=== PATIENT | male | born 1950 | race African-American/Black ===

== ENCOUNTER 2021-03-25 12:47 | Inpatient (IN) | payer OTHER ==
[~2021-03-25] VITALS: Ht 188 cm; Wt 110.4 kg
[2021-03-25 12:52] VITALS: BP 174/94
[2021-03-25 13:12] LABS: ABSOLUTE NEUTROPHILS 2.5 thou/uL (1.4-8.2); BASOPHILS 1.2 % (0.0-2.0); EOSINOPHILS 0.8 % (0.0-3.0); HEMATOCRIT 43.2 % (42.0-52.0); HEMOGLOBIN 14.9 gm/dL (14.0-18.0); LYMPHOCYTES 41.1 % (24.0-44.0); MCH 29.5 pg (26.0-34.0); MCHC 34.4 g/dL (28.0-37.0); MCV 85.8 fL (80.0-100.0); MONOCYTES 7.9 % (1.0-8.0); PLATELET COUNT 211 thou/uL (150-400); RBC 5.04 mil/uL (4.50-6.00); RDW 14.1 % (10.5-14.5); WBC 5.2 thou/uL (4.0-11.0)
[2021-03-25 13:15] LABS: ANION GAP 7 mmol/L (7-16); BUN 17 mg/dL (7-18); CALCIUM 9.1 mg/dL (8.5-10.1); CHLORIDE 105 mmol/L (98-107); CO2 31 mmol/L (21-32); CREATININE 1.5 mg/dL (0.7-1.3); GLUCOSE 102 mg/dL (74-106); POTASSIUM 3.4 mmol/L (3.5-5.1); SODIUM 143 mmol/L (136-145)
[2021-03-25 13:25] LABS: ALBUMIN 3.9 g/dL (3.4-5.0); DIRECT BILIRUBIN 0.1 mg/dL (<0.1-0.2); SGOT 24 U/L (15-37); SGPT 31 U/L (16-63); TOTAL BILIRUBIN 0.7 mg/dL (0.2-1.0); TOTAL PROTEIN 7.8 g/dL (6.4-8.2); TROPONIN-I <0.06 ng/mL (<0.06)
[2021-03-25 13:28] LABS: APTT 23.4 Seconds (24.5-32.8); INR 1.05; PROTIME 11.4 Seconds (10.5-12.1)
--- NOTE | 2021-03-25 14:38 | NUR ---
ASSUMED CARE FROM JAIME ANSARI AT THIS TIME
[2021-03-25 14:53] LABS: URINE BILIRUBIN NEGATIVE (Negative); URINE BLOOD TRACE (Negative); URINE CLARITY CLEAR; URINE COLOR YELLOW; URINE GLUCOSE-RANDOM* NEGATIVE (Negative); URINE KETONES NEGATIVE (Negative); URINE LEUKOCYTES-REFLEX NEGATIVE (Negative); URINE NITRITE-REFLEX NEGATIVE (Negative); URINE PROTEIN (DIPSTICK) NEGATIVE (Negative); URINE SPECIFIC GRAVITY 1.025 (1.005-1.035); URINE UROBILINOGEN 0.2 E.U./dl (0.2-1.0)
--- NOTE | 2021-03-25 15:44 | NUR ---
HOSPITALIST AT BEDSIDE AT THIS TIME
[2021-03-25 15:50] VITALS: BP 164/88
--- NOTE | 2021-03-25 15:50 | NUR ---
HANDOFF TOOL SENT AT THIS TIME
[2021-03-25 16:57] VITALS: BP 193/87
--- NOTE | 2021-03-25 18:52 | NUR ---
ADMITTED THIS PATIENT FROM EMERGENCY,CONCIOUS AND ORIENTED TO SELF.SOMETIMES CONFUSED AND FORGETFUL.ON ROOM AIR BREATHING SPONTANEOUSLY.NOT IN PAIN OR DISTRESS.ROUTINE ADMISSION DONE.MRI DONE.HANDED OVER FOR CONTINOUS CARE.
[2021-03-25 19:20] VITALS: BP 163/82
[2021-03-26 00:03] VITALS: BP 151/83
[2021-03-26 03:40] LABS: HEMATOCRIT 39.8 % (42.0-52.0); HEMOGLOBIN 13.4 gm/dL (14.0-18.0); MCH 29.1 pg (26.0-34.0); MCHC 33.8 g/dL (28.0-37.0); MCV 86.2 fL (80.0-100.0); RBC 4.61 mil/uL (4.50-6.00); RDW 14.4 % (10.5-14.5); WBC 5.5 thou/uL (4.0-11.0)
[2021-03-26 03:58] LABS: CALCIUM 8.4 mg/dL (8.5-10.1); CREATININE 1.3 mg/dL (0.7-1.3); POTASSIUM 3.1 mmol/L (3.5-5.1)
[2021-03-26 04:16] LABS: CHOLESTEROL 161 mg/dL (<200); HDL CHOLESTEROL 47 mg/dL (>40); LDL CHOLESTEROL 98 mg/dL (<100); TC:HDL 3.4 Ratio (Not establshd); TRIGLYCERIDE 80 mg/dL (<150); VLDL 16 mg/dL (<40)
[2021-03-26 04:28] VITALS: BP 117/71
[2021-03-26 04:48] LABS: SERUM ASSESSMENT Clear
[2021-03-26 08:49] VITALS: BP 146/82
[2021-03-26 15:16] VITALS: BP 160/96
[2021-03-26 15:26] VITALS: BP 160/96
[2021-03-26] MEDS ORDERED: LIPITOR10 MG PO (16:10)
[2021-03-26] MEDS ORDERED: ASA81BEC PO (16:10)
[2021-03-26] MEDS ORDERED: BENAZEPRIL HCL20 MG PO (16:10)
[2021-03-26 16:18] VITALS: BP 160/96
--- NOTE | 2021-03-26 16:32 | NUR ---
RECEIVED THE PATIENT CONSCIOUS AND ORIENTED.ON ROOM AIR BREAHING SPONTANEOUSLY.NOT IN PAIN OR DISTRESS.SEEN BY NEUROLOGY AND WAS CLEARED TO BE DISCHARGED.EVALUATED ALSO BY PHYSICAL THERAPIST AND DR JOSHUA QUINTEROS TO DISCHARGE THE PATIENT.DISCHARGE PACKET GIVEN AND EXPLAINED.DISCHARGED PATIEN TON STABLE CONDITION ACCOMPNIED BY HIS SIBLINGS.
--- NOTE | 2021-03-27 14:18 | EKG ---
[address] [place] [address] ELECTROCARDIOGRAM REPORT Name: CLEMENTINEJUSTINE Villafana Room #: 203-P [facility]#: [id number] Admission: 03/25/21 Attend Phys: Joshua Oneil MD Discharge: 03/26/21 Date of : 46 Report #: [id number] [facility] [place], [place] ED Test Date: 2021-03-25 Test Time: 13:17:17 Pat Name: JUSTINE SPRING Department: Room: [facility] Gender: M Glass Processing Worker: chinedu : 1950 Requested By: Loretta Silva Order Number: [id number] MD: Hector Morris Measurements Intervals Capron Rate: 82 P: 70 CA: 176 QRS: 79 QRSD: 106 T: -57 QT: 401 QTc: 469 Interpretive Statements Sinus rhythm Multiple ventricular premature complexes Anteroseptal infarct, old Borderline T abnormalities, inferior leads Baseline wander in lead(s) II,III,aVF No previous ECG available for comparison Electronically Signed On 03-27-2021 14:18:40 CDT by Hector Morris [email or web address] <ELECTRONICALLY SIGNED> By: Hector Morris MD, FACC 03/27/21 1418 1317 1317 Hector Morris MD, [facility] /EPI
--- NOTE | 2021-03-27 19:42 | HC ---
[facility] [place] [address] CONSULTATION Name: JUSTINE SPRING Room #: 203-P [facility]#: [id number] Admission: 03/25/21 Attend Phys: Joshua Oneil MD Discharge: 03/26/21 Date of : 46 Report #: [id number] THIS REPORT FOR: cc: Zana Youssef MD, Keninde A. MD Khosla,Ever Arnold MD ~ DATE OF SERVICE: 03/25/2021 HISTORY OF PRESENT ILLNESS: This is a 70-year-old male patient on whom the history is not very clear. He was admitted with memory loss. How long it is going on, is not clear. Initially, they said he was found to be normal at 4:00, but then they say he had some problem even before. He tells me he does not remember the things even yesterday. His speech is intact. There is strictly a memory loss. REVIEW OF SYSTEMS: Indicate he is not having any short-term memory. He does better with the long-term memory according to the family. He never had this kind of episode before. There was some tingling on the left arm, but again I am not sure about that history. I carried out the 14-point review of system is not complaining of any eye, ENT, cardiac, respiratory, GI, , musculoskeletal, constitutional, dermatological, hematological, psychiatric, throat, allergic symptom associated with present symptomatology. PAST MEDICAL HISTORY: Negative for this kind of episode. FAMILY HISTORY: Unremarkable. SOCIAL HISTORY: Drinks only on special occasion. PHYSICAL EXAMINATION: Indicates he can tell me what month it is. He can tell me what date it is. He knew what hospital he was in, but he was not remembering the recent events since yesterday very well. Cranial nerve examination II-XII and neuromuscular examination was symmetrical. There is no cerebellar sign. I could not look at the patient's fundus. There is no meningeal sign. Pulses are somewhat difficult to feel, but there is no edema. Cardiac examinations appear unremarkable. No respiratory difficulty was noted. He is a well-built individual. His vision and hearing looks adequate. His blood pressure is 193/87 and it has been persistently high when he is here. He has no dysmorphic features of eyes, ears and face. No thyroid mass. No carotid bruit. His MRI of the brain does not demonstrate any acute abnormality, but does it show a pretty significant chronic disease. IMPRESSION: 1. The present episode appeared to be transient global amnesia. We will see if he recovers within next day or so. 2. His brain does demonstrate a pretty significant chronic disease. We will do [address] [address] CONSULTATION Name: JUSTINE SPRING Room #: 203-P [facility]#: [id number] Admission: 03/25/21 Attend Phys: Joshua Oneil MD Discharge: 03/26/21 Date of : 46 Report #: [id number] some further workup on this patient in that regard. I will check a lipid profile and sed rate in this patient and he may need some further treatment in that regard. 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 Thank you very much for this referral. I do not know whether echocardiogram can be done here or need to be done as an outpatient if it cannot be done until Sunday. Thank you very much for this referral. <ELECTRONICALLY SIGNED> By: Ever Spaulding MD 03/27/211941 01 11 Ever Spaulding MD /nt
--- NOTE | 2021-03-27 19:42 | EEG ---
[facility] [place] [address] ELECTROENCEPHALOGRAM Name: JUSTINE SPRING Room #: 203-P [facility]#: [id number] Admission: 03/25/21 Attend Phys: Joshua Oneil MD Discharge: 03/26/21 Date of : 46 Report #: [id number] THIS REPORT FOR: //name// DATE OF SERVICE: 03/26/2021 The patient is being evaluated for an episode of altered mental status. EEG was done by placing the electrode by standard 10-20 system of electrode placement. Both referential and sequential montages were used for recording. Background activity in this patient's EEG is about 10 Hz and 30 microvolt. The patient went to sleep that is associated with bilaterally symmetrical sleep spindle and vertex sharp waves. Throughout the record, no active epileptiform activity was noticed. IMPRESSION: This patient's EEG is within normal limit. Thank you very much for this referral. <ELECTRONICALLY SIGNED> By: Ever Spaulding MD 03/27/21 1942 1143 173 Ever Spaulding MD /nt
[2021-03-28 23:06] LABS: SYPHILIS AB Non Reactive (Non Reactive)
== END 2021-03-26 16:51 | disposition home or self-care (01) | DRG 71 ==
LOC: ER 12:47 → 2N 16:56
PROVIDERS: Emergency Medicine; Psychiatry & Neurology Neuromuscular Medicine; ADMIT Hospitalist; ATTEND Hospitalist
DX: G45.4 Transient global amnesia (principal); N17.9 Acute kidney failure, unspecified; I10 Essential (primary) hypertension; I99.8 Other disorder of circulatory system; E66.9 Obesity, unspecified; Z68.31 Body mass index [BMI] 31.0-31.9, adult; Z98.49 Cataract extraction status, unspecified eye
CPT/HCPCS: 10081

== ENCOUNTER → 2021-07-28 | Outpatient (CLI) | payer OTHER ==
[~2021-07-28] MED LIST: ASA81BEC PO; ASPIRIN EC325 M1 PO; BENAZEPRIL HCL20 MG PO; LIPITOR10 MG PO
--- NOTE | 2021-07-28 11:35 | 2DMMODE ---
[facility] [place] [address] 2 D/M-MODE ECHOCARDIOGRAM Name: JUSTINE SPRING Room #: REG [facility]#: [id number] Admission: 07/28/21 Attend Phys: Ever Spaulding MD Discharge: Date of : 46 Report #: [id number] THIS REPORT FOR: cc: Zana Youssef MD, Keninde A. MD Santiago, Patrick MD [facility] ~ APPROVED REPORT Study performed: 07/28/2021 11:35:38 EXAM: Comprehensive 2D, Doppler, and color-flow Echocardiogram Patient Location: Out-Patient Status: routine BSA: 2.35 HR: 88 bpm BP: 151/83 mmHg Rhythm: NSR Other Information Study Quality: Good Indications Memory loss. Echo Enhancing Agent Indication: Rule out Shunt Agent(s) / Amount(s) Used: Agitated Saline 7 cc 2D Dimensions IVSd: 12.78 (7-11mm) LVOT Diam: 21.70 (18-24mm) LVDd: 46.92 mm PWd: 10.01 (7-11mm) Ascending Ao: 34.93 (22-36mm) LVDs: 30.04 (25-40mm) Left Atrium: 43.28 (27-40mm) Aortic Root: 32.01 mm Volumes Left Atrial Volume (Systole) Single Plane 4CH: 71.06 mL Single Plane 2CH: 65.40 mL LA ESV Index: 30.00 mL/m2 Aortic Valve AoV Peak Wally.: 1.45 m/s [facility] [address] [place] [address] 2 D/M-MODE ECHOCARDIOGRAM Name: JUSTINE SPRING Room #: REG [facility]#: [id number] Admission: 07/28/21 Attend Phys: Ever Spaulding, Discharge: Date of : 46 Report #: [id number] AO Peak Gr.: 8.38 mmHg LVOT Max P.10 mmHg LVOT Max V: 1.23 m/s FEROZ Vmax: 3.15 cm2 Mitral Valve E/A Ratio: 0.8 MV Decel. Time: 168.18 ms MV E Max Wally.: 0.68 m/s MV A Wally.: 0.88 m/s MV PHT: 48.77 ms IVRT: 83.04 ms Pulmonary Valve PV Peak Wally.: 0.84 m/s PV Peak Gr.: 2.85 mmHg Pulmonary Vein P Vein S: 0.58 m/s P Vein D: 0.51 m/s P Vein S/D Ratio: 1.14 Tricuspid Valve TR Peak Wally.: 2.40 m/s RAP Estimate: 5.00 mmHg TR Peak Gr.: 23.00 mmHg PA Pressure: 28.00 mmHg Left Ventricle The left ventricle is normal size. There is normal LV segmental wall motion. There is normal left ventricular wall thickness. Left ventricular systolic function is normal. LVEF is 60%. Mild diastolic dysfunction is present (impaired relaxation pattern). Right Ventricle The right ventricle is normal size. The right ventricular systolic function is normal. Atria The left atrium size is normal. The right atrium size is normal. Positive bubble study with right to left shunting, consistant with possible small PFO. Aortic Valve The aortic valve is normal in structure. No aortic regurgitation is present. There is no aortic valvular stenosis. Mitral Valve The mitral valve is normal in structure. There is no mitral valve [facility] [place] [address] 2 D/M-MODE ECHOCARDIOGRAM Name: CLEMENTINEJUSTINE Broderick Room #: REG [facility]#: [id number] Admission: 07/28/21 Attend Phys: Ever Spaulding, Discharge: Date of : 46 Report #: [id number] regurgitation noted. No evidence of mitral valve stenosis. Tricuspid Valve The tricuspid valve is normal in structure. Trace tricuspid regurgitation. Pulmonic Valve The pulmonary valve is normal in structure. Trace pulmonic regurgitation. Great Vessels The aortic root is normal in size. The ascending aorta is normal in size. IVC is normal in size and collapses >50% with inspiration. Pericardium There is no pericardial effusion. <Conclusion> Normal left ventricle size/wall thickness Ejection fraction 60% Grade 1 diastolic dysfunction Normal right ventricle size/function Normal atrial size Normal aortic/mitral valve structure and function Trace tricuspid valve insufficiency No pericardial effusion Normal aortic root size Some bubbles detected on the left chamber suggestive of small PFO or ASD <ELECTRONICALLY SIGNED> By: Ryan Tsang MD, FACC 07/28/21 1135 1135 1135 Ryan Tsang MD, FACC /INF
== END | disposition home or self-care (01) ==
LOC: CV 10:20
PROVIDERS: ATTEND Psychiatry & Neurology Neuromuscular Medicine
DX: R41.3 Other amnesia (principal); R93.89 Abnormal findings on diagnostic imaging of other specified body structures